=== PATIENT | male | born 1935 | race Caucasian/White ===

== ENCOUNTER 2016-10-29 11:57 | Emergency (ER) | payer OTHER, BC ==
[2016-10-29 12:06] VITALS: TEMP 97.5
--- NOTE | 2016-10-29 13:10 | EDPHY ---
HPI/HX/ROS/PE/MDM Narrative: CHIEF COMPLAINT: Back pain HISTORY OF PRESENT ILLNESS: The patient is an 81-year-old male presenting with "back spasms" that started at 4:30 p.m. yesterday. The patient flew here yesterday from [place], while getting off the plane he started feeling "twinges ". He was seen at an Urgent Care yesterday and received a Toradol shot. His pain improved and he was able to sleep without pain. This morning the spasms returned. He reports pain localized to the left low back. The pain is less severe than yesterday. It is worse with movement. His pain occasionally radiates to across the low back. It does not radiate down the leg, though walking causes increased pain and makes it difficult to ambulate. He has been using a cane. He states this pain feels similar to previous back spasms that occur about once every five years. His pain usually improves with muscle relaxers. The patient notes that his right buttock has a heated sensation. This is an acute symptom that is not usually associated with his back spasms. This is localized to right side only and started about 1 week ago. The patient has no history of back surgery. No history of kidney stones. He denies hematuria or lower extremity numbness. No fever, cough, chest pain, or shortness of breath. REVIEW OF SYSTEMS: Aside from elements discussed in the HPI, a comprehensive 10-point review of systems was reviewed and is negative. PAST MEDICAL HISTORY: Diabetes II, Cataract surgery, Bilateral knee replacement , Cholecystectomy. SOCIAL HISTORY: From [place]. Daughter at bedside. VITAL SIGNS: Reviewed by me GENERAL: Obese, uncomfortable when moving. HEENT: Atraumatic. Eyes: No icterus, no injection. Mouth: moist mucous membranes. No erythema or lesions. Neck: supple with no adenopathy. LUNGS: Clear to auscultation bilaterally, no wheezes, rhonchi or rales. CARDIAC: Regular rate and rhythm, no rubs, murmurs or gallops. ABDOMEN: Obese, nontender. BACK: Tenderness to left lower lumbar paraspinous region. Right buttock no erythema no warmth. No skin changes appreciated on either buttock. EXTREMITIES: No trauma. No edema. Range of motion is normal throughout. NEURO: Alert and oriented. Left hip flexion 4/5 as causes pain in back. Right hip flexor 5/5. Quads/ hamstrings 5/5 bilaterally. Normal plantar flexion and dorsiflexion. EHL strength normal bilaterally. Sensation to light touch normal throughout. Reflexes brisk bilaterally. SKIN: Warm and dry, no rash. PSYCHIATRIC: Normal mentation, no agitation. Portions of this note were transcribed by a chief medical technologist. I personally performed a history, physical exam, medical decision making, and confirmed accuracy of information the transcribed note. ED Course: The patient presents with usual back spasms that started yesterday. He received a Toradol shot yesterday which improved his pain. This morning the pain returned. The patient is very uncomfortable with movement. He has no leg numbness, sensation is intact. The patient complains of a heated sensation to his right buttock. On exam, the patient has no erythema or warmth to the right buttock. He denies hematuria or history of kidney stones. Patient has not had previous MRI for this pain, plan for lumbar spine MRI and pelvic MRI. IV was established. Patient received 30mg Toradol IV and 5mg Valium IV. 3:15 p.m.: Delay in obtaining MRI as patient has penile implant and it is unknown what material this is made of. Patient is much improved post meds. Understands that a full evaluation of the heated sensation to his right buttock should be further evaluated but patient would prefer to be discharged. Will be traveling back to [place] in 2 days. Will follow up with his PCP there. I discussed that pros and cons of leaving with a incomplete evaluaiton. Patinet confident that his pain is very similar to multiple prior episodes and would like to be discharged. MDM: Diff dx of patients complaints considered including but not limited to cauda equina, epidural abscess, epidural hematoma, lumbar myositis, musculoskeletal pain, deep space infection, radiculopathy, lumbar muscle spasm, kidney stone. - Data Points Laboratory Results: Laboratory Results 10/29/16 13:35 10/29/16 13:35 Medications Given: Discontinued Medications Diazepam (Valium Injection) 5 mg IVP EDNOW ONE Stop: 10/29/16 13:33 Last Admin: 10/29/16 13:51 Dose: 5 mg Ketorolac Tromethamine (Toradol) 30 mg IVP EDNOW ONE Stop: 10/29/16 13:34 Last Admin: 10/29/16 13:51 Dose: 30 mg General Time Seen by Provider: 10/29/16 13:06 Initial Vital Signs: Initial Vital Signs Temperature (C) 36.4 C 10/29/16 12:02 Heart Rate 68 10/29/16 12:02 Respiratory Rate 10/29/16 12:02 Blood Pressure 118/66 10/29/16 12:02 O2 Sat (%) 98 10/29/16 12:02 O2 Delivery Mode Room Air Allergies/Adverse Reactions: No Known Allergies Allergy (Unverified 10/29/16 12:01) Home Medications: Medication Instructions Recorded Aspirin 10/29/16 Diazepam [Valium 5 MG (*)] 5 mg PO Q8 PRN #10 tab 10/29/16 Lantus 100 UNITS/ML (*) 10/29/16 Lipitor 10/29/16 Metformin HCl 10/29/16 traMADol [Ultram 50 mg (*)] 50 mg PO Q6 PRN #15 tab 10/29/16 Departure - Departure Disposition: Home, Routine, Self-Care Clinical Impression: Back spasm Condition: Good Instructions: Muscle Spasm (ED) Additional Instructions: #1. You have been given a prescription for Tramadol to use as needed for pain. #2. Take the Valium for muscle spasm or the Tizanidine that your received from Urgent Care. The Valium will make you sleepy. #3. Please followup with your primary care physician when you return home. [facility]Other[facility] - As per Instructions Prescriptions: Diazepam [Valium 5 MG (*)] 5 mg PO Q8 PRN #10 tab PRN Reason: muscle spasm traMADol [Ultram 50 mg (*)] 50 mg PO Q6 PRN #15 tab PRN Reason: Pain Report Scribed for: Tiffanie Mendez Report Scribed by: Sydney Garcia Date of Report: 10/29/16 Time of Report: 13:10
[2016-10-29] MEDS ORDERED: DIAZEPAM 10 MG/2 ML SYR IVP ONE (13:32)
[2016-10-29] MEDS ORDERED: KETOROLAC 30 MG/1 ML SDV IVP ONE (13:33)
[2016-10-29 13:41] LABS: % IMMATURE GRANULYOCYTES 0.3 % (0.0-1.1); ABSOLUTE IMMATURE GRANULOCYTES 0.03 10^3/uL (0.00-0.10); ADD DIFF? NO; ADD MORPH? NO; ADD SCAN? NO; ATYPICAL LYMPHOCYTE FLAG 20 (0-99); FRAGMENT RBC FLAG 0 (0-99); HEMATOCRIT 40.9 % (40.0-51.0); HEMOGLOBIN 14.2 g/dL (13.7-17.5); LEFT SHIFT FLG 20 (0-99); LIPEMIA HEMOLYSIS FLAG 90 (0-99); MEAN CELL HEMOGLOBIN 31.9 pg (27.9-34.1); MEAN CELL HEMOGLOBIN CONCENTR. 34.7 g/dL (32.4-36.7); MEAN CELL VOLUME 91.9 fL (81.5-99.8); MEAN PLATELET VOLUME 10.2 fL (8.7-11.7); PLATELET CLUMPS FLAG 0 (0-99); PLATELET COUNT 261 10^3/uL (150-400); RED BLOOD CELL COUNT 4.45 10^6/uL (4.40-6.38); RED CELL DISTRIBUTION WIDTH 13.2 % (11.5-15.2)
[2016-10-29 14:10] LABS: ANION GAP 12 mEq/L (8-16); CALCIUM 9.5 mg/dL (8.5-10.4); CARBON DIOXIDE 22 mEq/l (22-31); CHLORIDE 103 mEq/L (97-110); CREATININE 0.7 mg/dL (0.7-1.3); GLOMERULAR FILTRATION RATE > 60; GLUCOSE 177 mg/dL (70-100); POTASSIUM 4.5 mEq/L (3.5-5.2); SODIUM 137 mEq/L (134-144)
[2016-10-29 15:44] VITALS: BP 121/89; PULSE 73; RESP 14; O2SAT 95
== END 2016-10-29 15:44 | disposition home or self-care (01) ==
DX: M62.830 Muscle spasm of back (principal); E11.9 Type 2 diabetes mellitus without complications; Z79.4 Long term (current) use of insulin; Z79.82 Long term (current) use of aspirin; Z79.84 Long term (current) use of oral hypoglycemic drugs
CPT/HCPCS: 96374; 96375; 99284; J1885